=== PATIENT | male | born 1965 | race Asian ===

== ENCOUNTER 2018-02-16 20:51 | Emergency (ER) | payer OTHER ==
[2018-02-16] MEDS ORDERED: FAMOTIDINE 20 MG/NACL 50 ML IV ONE (21:03)
[2018-02-16] MEDS ORDERED: ONDANSETRON 4 MG/2 ML VIAL IVP ONE (21:03)
[2018-02-16] MEDS ORDERED: HYDROmorphONE/DILAUDID 2 MG/ML INJ IVP ONE (21:03)
[2018-02-16] MEDS ORDERED: NS 1,000 ML IV ONE ×2 (21:03→21:49)
[2018-02-16 21:09] LABS: PLATELET COUNT 198 10^3/uL (150-400)
--- NOTE | 2018-02-16 21:15 | EDPHY ---
H & P Time Seen by Provider: 02/16/18 21:01 Smoking Status: Never smoked Constitutional: Initial Vital Signs Temperature (C) 36.5 C 02/16/18 20:54 Heart Rate 80 02/16/18 20:54 Respiratory Rate 20 02/16/18 20:54 Blood Pressure 153/103 H 02/16/18 20:54 O2 Sat (%) 99 02/16/18 20:54 O2 Delivery Mode Room Air Allergies/Adverse Reactions: No Known Allergies Allergy (Unverified 02/16/18 20:54) Home Medications: Medication Instructions Recorded NK [No Known Home Meds] 02/16/18
[2018-02-16] MEDS ORDERED: PANTOPRAZOLE SODIUM 40 MG VIAL IVP ONE (21:45)
--- NOTE | 2018-02-16 21:50 | EDPHY ---
H & P Time Seen by Provider: 02/16/18 21:01 HPI/ROS: HPI Upper abdominal pain. 52-year-old male by private vehicle. This patient reports that at approximately 4:00 p.m. Today he developed epigastric pain which she describes as burning and crampy in his mid upper epigastric area. He reports this occurred after he ate breakfast food at approximately 3:00 p.m. Followed by pizza. He reports after he ate the pizza he started having the pain. He reports the pain worsened through the evening. He had some soup at home at approximately 6:00 p.m. And the pain got worse and then he decided to come to the emergency department. He vomited prior to coming here and stated that this relieved his pain temporarily but then he started feeling the pain and again. Vomit described as nonbilious and nonbloody. He has had this pain once in the past several days ago after eating a pomegranate fruit. He stated that it was not as bad at that time and resolved on its own. ROS: Constitutional: No fever, no chills. No weakness. Eyes: No discharge. No changes in vision. ENT: No sore throat. No nasal congestion or rhinorrhea. Respiratory: No cough. No shortness of breath. Cardiac: No chest pain, no palpitations. Gastrointestinal: As above, no diarrhea. No bloody or melenic stool. Genitourinary: No hematuria. No dysuria or increased frequency with urination. Musculoskeletal: No back pain. No neck pain. No myalgias or arthralgias. Skin: No rashes. Neurological: No headache. No focal weakness or altered sensation. Past medical history: He denies any significant past medical history. He is not on any prescription medication. Primary care is through [facility]. Social history: Nonsmoker. He does drink alcohol at least several times a week. Not hard liquor. He drinks a lot of coffee. He is currently here by himself. Physical Exam: General Appearance: Alert, he appears uncomfortable, writhing back and forth. This patient is responding to questions appropriately and in full sentences. This patient appears well-hydrated and well-nourished. Eyes: Pupils equal and round no pallor or injection. No lid edema, erythema or injection. Respiratory: There are no retractions, lungs are clear to auscultation with good air movement bilaterally. Cardiovascular: Regular rate and rhythm. No murmur. Gastrointestinal: Abdomen is soft with [id number] epigastric tenderness on palpation, no masses, bowel sounds normal. No focal tenderness at McBurney' s point. No Dyer sign. Neurological: Motor sensory function is grossly intact. Cranial nerves are normal. Gait is normal. Skin: Warm and dry, no rashes. Musculoskeletal: Neck is supple and nontender. Extremities are symmetrical. All joints range without pain or impingement. Psychiatric: No agitation. No depression. Database: EKG: EKG time is 9:49 p.m.; EKG shows a narrow complex normal sinus rhythm with a ventricular rate of 82. The VA, QRS, QT intervals are within normal limits. There are no ST-T wave changes indicative of ischemic or injury pattern. No evidence of right heart strain. Interpreted by me. Imaging: Right upper quadrant ultrasound: Significant for a 2.2 cm stone lodged in the gallbladder neck. The gallbladder more wall is mildly thickened. No pericholecystic fluid. Sonographic Dyer sign. Results were discussed with staff radiologist Dr. Humble Peters. Procedures: Emergency department course: Vital signs reviewed. He is moderately hypertensive. Vital signs are otherwise normal. IV was placed. He was started on IV normal saline with 1 L to be given over the next hour. He was initially given 20 mg of IV Pepcid, 4 mg of IV Zofran and 1 mg of IV hydromorphone for pain. After my evaluation he was also given 40 mg of IV Pepcid, EKG obtained. 10:45 p.m., the patient was re-evaluated, he is resting comfortably at this time. This pain is currently well controlled. I discussed the results of his ultrasound and diagnosis of gallstones and mild cholecystitis. General surgery paged. 10:50 p.m., spoke with Dr. Julienne Arana. Case discussed with her. The patient has his insurance through [employer] . Dr. Arana is happy to take his gallbladder out but wants us to clear it with [facility]. 11:00 p.m., spoke with the [facility], Dr. Dyer. They will arrange for ambulance transport of the patient to [facility]. This was discussed with the patient. He is in agreement. His pain is well controlled at this time. All of his questions were answered. I have filled out the appropriate transfer paperwork. He was transferred in stable condition to [facility]. Differential Diagnosis: The differential diagnosis on this patient includes but is not limited to ulcerative versus non ulcerative gastritis, pancreatitis, cholecystitis. Acute coronary syndrome, aortic dissection, perforated peptic ulcer, volvulus unlikely. This represents a partial list of diagnoses considered. These considerations are based on history, physical exam, past history, reassessment and diagnostic testing. Smoking Status: Never smoked Constitutional: Initial Vital Signs Temperature (C) 36.5 C 02/16/18 20:54 Heart Rate 80 02/16/18 20:54 Respiratory Rate 20 02/16/18 20:54 Blood Pressure 153/103 H 02/16/18 20:54 O2 Sat (%) 99 02/16/18 20:54 O2 Delivery Mode Room Air Allergies/Adverse Reactions: No Known Allergies Allergy (Unverified 02/16/18 20:54) Home Medications: Medication Instructions Recorded NK [No Known Home Meds] 02/16/18 Medical Decision Making - Data Points Laboratory Results: Laboratory Results 02/16/18 21:01 02/16/18 21:01 Microbiology Results: MICROBIOLOGY 02/16/18 23:02 Unspecified Urine Culture - Final Medications Given: Discontinued Medications Hydromorphone HCl (Dilaudid) 1 mg IVP EDNOW ONE Stop: 02/16/18 21:04 Last Admin: 02/16/18 21:16 Dose: 1 mg Sodium Chloride (Ns) 1,000 mls @ 0 mls/hr IV EDNOW ONE; Wide Open PRN Reason: Protocol Stop: 02/16/18 21:04 Last Admin: 02/16/18 21:14 Dose: 1,000 mls Famotidine/Sodium Chloride (Pepcid 20 Mg (Premix)) 50 mls @ 200 mls/hr IV EDNOW ONE Stop: 02/16/18 21:17 Last Admin: 02/16/18 21:16 Dose: 50 mls Sodium Chloride (Ns) 1,000 mls @ 0 mls/hr IV EDNOW ONE; Wide Open PRN Reason: Protocol Stop: 02/16/18 21:50 Last Admin: 02/16/18 21:55 Dose: 1,000 mls Ondansetron HCl (Zofran) 4 mg IVP EDNOW ONE Stop: 02/16/18 21:04 Last Admin: 02/16/18 21:16 Dose: 4 mg Pantoprazole Sodium (Protonix) 40 mg IVP EDNOW ONE Stop: 02/16/18 21:46 Last Admin: 02/16/18 21:53 Dose: 40 mg Point of Care Test Results: Chemistry 02/16/18 21:47 POC Troponin I 0.00 ng/mL ng/mL (0.00-0.08) Departure - Departure Disposition: Acute Care Hospital [facility] Clinical Impression: Epigastric abdominal pain, Acute cholecystitis Referrals: NONE *PRIMARY CARE P,. [Primary Care Provider] - As per Instructions
--- NOTE | 2018-02-16 22:53 | CPEKG ---
Test Reason : OPEN Blood Pressure : / mmHG Vent. Rate : 082 BPM Atrial Rate : 080 BPM P-R Int : 168 ms QRS Dur : 088 ms QT Int : 416 ms P-R-T Axes : 055 -03 048 degrees QTc Int : 486 ms Sinus rhythm Borderline prolonged QT interval Confirmed by Lianet Schulz ([id number]) on 02/16/2018 10:52:42 PM Referred By: Confirmed By:Lianet Schulz
[2018-02-17 00:08] VITALS: BP 149/95
== END 2018-02-17 00:17 | disposition short-term general hospital (02) ==
DX: K81.0 Acute cholecystitis (principal); E86.9 Volume depletion, unspecified
CPT/HCPCS: 84484-PO; 96374; J1170; J2405